=== PATIENT | male | born 1975 | race Caucasian/White ===

== ENCOUNTER 2022-05-06 22:08 | Emergency (ER) | payer SELFPAY ==
--- NOTE | 2022-05-06 23:00 | NUR ---
Patient was called to be triaged but was not present in the waiting room or outside of ER.
--- NOTE | 2022-05-06 23:30 | NUR ---
Patient was called to be triaged but was not present in the waiting room or outside of ER.
--- NOTE | 2022-05-07 00:05 | NUR ---
Patient was called to be traiged but was not present in the Waiting room or outside of ER. PATIENT WAS NOT TRIAGED OR SEEN BY [facility].
[2022-05-07] MEDS ORDERED: SULF1TAB48 PO (03:39)
== END 2022-05-07 00:07 | disposition left against medical advice (07) ==
LOC: ER 22:08
DX: Z53.21 Procedure and treatment not carried out due to patient leaving prior to being seen by health care provider (principal)